=== PATIENT | male | born 1965 ===

== ENCOUNTER 2022-04-09 17:43 | Inpatient (IN) | payer MEDICARE, MEDICAID ==
[2022-04-09] MEDS ORDERED: MAGNESIUM HYDROXIDE 2,400 MG/10 ML CUP PO PRN (18:16)
[2022-04-09] MEDS ORDERED: MAG HYDROX/AL HYDROX/SIMETH 30 ML CUP PO PRN (18:16)
[2022-04-09] MEDS ORDERED: ACETAMINOPHEN TAB 325 MG TAB PO PRN (18:16)
[2022-04-09] MEDS ORDERED: LORazepam 1 MG TAB PO PRN (18:16)
[2022-04-09] MEDS ORDERED: HALOPERIDOL LACTATE 5 MG/ML 1 ML VIAL IM PRN (18:16)
[2022-04-09] MEDS ORDERED: haloperidoL 5 MG TAB PO PRN (18:18)
[2022-04-09] MEDS ORDERED: LORazepam 2 MG/ML INJ IM PRN (18:18)
--- NOTE | 2022-04-10 05:01 | P.PN ---
Progress Note - Text Progress Note Date: 04/10/22 patient sleeping could not be seen at this time
--- NOTE | 2022-04-10 13:18 | P.HP ---
Psychiatric H&P - . H&P Date: 04/10/22 History & Physical: Allergies Allergy/AdvReac Type Severity Reaction Status Date / Time No Known Allergies Allergy Verified 04/09/22 18:16 Vital Signs Temp 97.4 F L 04/09/22 18:05 Pulse 65 04/09/22 18:05 Resp 20 04/09/22 18:05 BP 117/88 04/09/22 18:05 Pulse Ox FiO2 Intake & Output 04/09/22 04/10/22 04/10/22 18:59 06:59 18:59 Weight 60.7 kg 62 kg 04/10/22 13:06 IDENTIFYING DATA: Patient is a 57-year-old male who is currently homeless has no kids. HPI: Patient presented to the hospital from [place]. She apparent he apparently was admitted for 70 days there for failure to thrive. Patient was apparently endorsing auditory hallucinations and not caring for self not eating and poor hygiene and grooming. Patient did was transferred to the hospital yesterday and admitted involuntarily. Patient was seen lying in his bed today and appeared to be disheveled in appearance, poverty of content, spoke in a soft tone of voice and was concrete. He states that he is "not feeling well". He is fairly vague about what he meant by this. He knew that he was in the hospital for the past 2 months however did not know why. He replied to most questions with either "not much" or "nothing". He claims that he has been depressed for the past several years and mainly isolating. He has not been showering or eating fairly. He claims that he sleeps fairly at nighttime. Patient denies any suicidal or homicidal ideations intent or plan. At this time patient denies any auditory or visual hallucinations. Patient denies any flight of ideas racing thoughts and increased in goal directed behavior. Patient admits to using no recreational drugs or cigarettes PAST PSYCHIATRIC HISTORY: Patient states that he has no significant mental health history. Patient denies being on any psychiatric medications. Patient denies any previous psychiatric hospitalizations. Patient denies any psychiatric outpatient follow-up over did state that he is to follow-up with a psychiatrist however cannot remember who. Patient denies any history of suicide attempts in the past. PMH: As per medicine H&P ALLERGIES: as per EMR CHEMICAL DEPENDENCY HISTORY: as per HPI FAMILY PSYCHIATRIC/SUBSTANCE USE HISTORY: denies SOCIAL HISTORY: Patient was born and raised in [place]. He states that he completed high school. He denies any legal history. He does not have any kids. He is currently homeless. MENTAL STATUS EXAM: General Appearance: Patient appears to be tall, thin, disheveled appearance, stated age is alert, difficult to direct her in conversation. Patient appears to have poor hygiene and grooming. Behavior: Patient is seated without any agitated behavior. Not cooperative. Vague. Speech: Patient's speech is fluent and nonpressured. Soft. Monotone. Mood/Affect: Patient reports their mood is depressed, affect is congruent and flat Suicidality/Homicidality: Patient denies having any homicidal ideation intent or plan. Denies any suicidal ideations intent or plan Perceptions: Patient denies any visual hallucinations and denies any auditory hallucinations Though content/process: Endorsing any delusions. Disorganized thoughts. Memory and concentration: AOX3, grossly intact for the purposes of this session. Cannot spell "WORLD" backwards Judgment and insight: poor STRENGTHS/WEAKNESSES: strength is that patient is resilient. Weakness is that patient has poor judgment and poor insight INTELLECT: average IMPRESSIONS: Schizoaffective disorder, depressive type PLAN: -Patient is admitted under involuntary status to MHU for stabilization of psychiatric symptoms and safety. Patient has not signed adult voluntary form and medication consent and is placed in patient's chart. A second certification was completed and along with petition will be filed for court. -Medications : Will start patient on Prozac 20 mg daily for mood/anxiety, Abilify 5 mg daily for psychosis/mood. Melatonin 5 mg daily at bedtime for sleep. -Ativan and Haldol PRN for agitation/aggression -Patient was informed of the risks, benefits and side effects of the medication and patient verbally consented to taking the medications. Patient signed med consent form and was placed in chart. -Internal Medicine consult to perform medical evaluation and physical. -NRT - not need this patient does not smoke -SW on board for discharge planning. Encourage patient to participate in groups to work on coping skills. Will await deferral and court date.
[2022-04-10] MEDS: FLUoxetine HCL 20 MG CAP PO SCH (13:45)
[2022-04-10] MEDS: ARIPiprazole 5 MG TAB PO SCH (13:45)
[2022-04-10] MEDS ORDERED: LORazepam 1 MG/0.5 ML VIAL IM PRN (16:26)
[2022-04-11] MEDS: FLUoxetine HCL 20 MG CAP PO SCH ×3 (10:03→14:08)
[2022-04-11] MEDS: ARIPiprazole 5 MG TAB PO SCH ×3 (10:03→14:07)
--- NOTE | 2022-04-11 10:50 | P.PN ---
Subjective Progress Note Date: 04/11/22 Principal diagnosis: IMPRESSIONS: Schizoaffective disorder, depressive type Subjective/subjective data: The patient was seen chart was reviewed and case discussed with the nursing staff The patient was laying in bed with sheets pulled all the way up to his face Patient did not answer to any questions asked but mostly made some grunting noises He acknowledges that he just came yesterday He did not want to get involved in any discussion Following is an etc. from the assessment done from the previous day ''Patient presented to the hospital from [place]. he apparent he apparently was admitted for 70 days there for failure to thrive. Patient was apparently endorsing auditory hallucinations and not caring for self not eating and poor hygiene and grooming. Patient did was transferred to the hospital yesterday and admitted involuntarily. Patient was seen lying in his bed today and appeared to be disheveled in appearance, poverty of content, spoke in a soft tone of voice and was concrete. He states that he is "not feeling well". He is fairly vague about what he meant by this. He knew that he was in the hospital for the past 2 months however did not know why. He replied to most questions with either "not much" or "nothing". He claims that he has been depressed for the past several years and mainly isolating. He has not been showering or eating fairly. He claims that he sleeps fairly at nighttime. Patient denies any suicidal or homicidal ideations intent or plan. At this time patient denies any auditory or visual hallucinations. Patient denies any flight of ideas racing thoughts and increased in goal directed behavior. Patient admits to using no recreational drugs or cigarettes'' MENTAL STATUS EXAM: General Appearance: Patient appears to be tall, thin, disheveled appearance, stated age is alert, laying comfortably in bed Patient appears to have poor hygiene and grooming. Behavior: Patient is laying down in bed without any agitated behavior. Not cooperative. Vague. Speech: Patient's speech is fluent and nonpressured. Soft. Monotone. Mood/Affect: Patient did not give feedback on his mood, affect is congruent and flat Suicidality/Homicidality: Unable to assess at this time Perceptions: Did not respond to any questions asked Though content/process: Unable to assess Memory and concentration: Unable to assess Judgment and insight: poor IMPRESSIONS: Schizoaffective disorder, depressive type PLAN: -Patient is admitted under involuntary status to MHU for stabilization of psychiatric symptoms and safety. Patient has not signed adult voluntary form and medication consent and is placed in patient's chart. A second certification was completed and along with petition will be filed for court. -Medications : patient on Prozac 20 mg daily for mood/anxiety, Abilify 5 mg daily for psychosis/mood. Melatonin 5 mg daily at bedtime for sleep. -Ativan and Haldol PRN for agitation/aggression From previous assessment: ' -Patient was informed of the risks, benefits and side effects of the medication and patient verbally consented to taking the medications. Patient signed med consent form and was placed in chart. -Internal Medicine consult to perform medical evaluation and physical. -NRT - not need this patient does not smoke -SW on board for discharge planning. Encourage patient to participate in groups to work on coping skills. Will await deferral and court date. ' Objective - Vital Signs Vital signs: Vital Signs Temp 97.4 F L 04/09/22 18:05 Pulse 65 04/09/22 18:05 Resp 20 04/09/22 18:05 BP 117/88 04/09/22 18:05 Pulse Ox FiO2
--- NOTE | 2022-04-12 01:45 | P.PN ---
Progress Note - Text Progress Note Date: 04/11/22 attempted to see the patient in the mental health unit at 2100 on 04/11. The patient refused to be seen or be evaluated
[2022-04-12] MEDS: ARIPiprazole 5 MG TAB PO SCH (09:17)
[2022-04-12] MEDS: FLUoxetine HCL 20 MG CAP PO SCH (09:17)
--- NOTE | 2022-04-12 10:33 | P.PN ---
Subjective Progress Note Date: 04/12/22 Principal diagnosis: IMPRESSIONS: Schizoaffective disorder, depressive type The interaction remains similar to the previous day where patient again refused to wake up in spite of several attempts to have him involved in any conversation Patient remains a motivated at this time to be involved in any interviewing and remains uncooperative Subjective/subjective data: The patient was seen chart was reviewed and case discussed with the nursing staff The patient was laying in bed with sheets pulled all the way up to his face Patient did not answer to any questions asked but mostly made some grunting noises He acknowledges that he just came yesterday He did not want to get involved in any discussion Following is an etc. from the assessment done from the previous day ''Patient presented to the hospital from [place]. he apparent he apparently was admitted for 70 days there for failure to thrive. Patient was apparently endorsing auditory hallucinations and not caring for self not eating and poor hygiene and grooming. Patient did was transferred to the hospital yesterday and admitted involuntarily. Patient was seen lying in his bed today and appeared to be disheveled in appearance, poverty of content, spoke in a soft tone of voice and was concrete. He states that he is "not feeling well". He is fairly vague about what he meant by this. He knew that he was in the hospital for the past 2 months however did not know why. He replied to most questions with either "not much" or "nothing". He claims that he has been depressed for the past several years and mainly isolating. He has not been showering or eating fairly. He claims that he sleeps fairly at nighttime. Patient denies any suicidal or homicidal ideations intent or plan. At this time patient denies any auditory or visual hallucinations. Patient denies any flight of ideas racing thoughts and increased in goal directed behavior. Patient admits to using no recreational drugs or cigarettes'' MENTAL STATUS EXAM: General Appearance: Patient appears to be tall, thin, disheveled appearance, stated age is alert, laying comfortably in bed Patient appears to have poor hygiene and grooming. Behavior: Patient is laying down in bed without any agitated behavior. Not cooperative. Vague. Speech: Patient's speech is fluent and nonpressured. Soft. Monotone. Mood/Affect: Patient did not give feedback on his mood, affect is congruent and flat Suicidality/Homicidality: Unable to assess at this time Perceptions: Did not respond to any questions asked Though content/process: Unable to assess Memory and concentration: Unable to assess Judgment and insight: poor IMPRESSIONS: Schizoaffective disorder, depressive type PLAN: -Patient is admitted under involuntary status to MHU for stabilization of psychiatric symptoms and safety. Patient has not signed adult voluntary form and medication consent and is placed in patient's chart. A second certification was completed and along with petition will be filed for court. -Medications : patient on Prozac 20 mg daily for mood/anxiety, Abilify 5 mg daily for psychosis/mood. Melatonin 5 mg daily at bedtime for sleep. -Ativan and Haldol PRN for agitation/aggression From previous assessment: ' -Patient was informed of the risks, benefits and side effects of the medication and patient verbally consented to taking the medications. Patient signed med consent form and was placed in chart. -Internal Medicine consult to perform medical evaluation and physical. -NRT - not need this patient does not smoke -SW on board for discharge planning. Encourage patient to participate in groups to work on coping skills. Will await deferral and court date. ' Objective - Vital Signs Vital signs: Vital Signs Temp 97.4 F L 04/12/22 09:30 Pulse 48 L 04/12/22 09:30 Resp 16 04/12/22 09:30 BP 96/58 04/12/22 09:30 Pulse Ox FiO2
[2022-04-13] MEDS: ARIPiprazole 5 MG TAB PO SCH ×2 (09:45→09:48)
[2022-04-13] MEDS: FLUoxetine HCL 20 MG CAP PO SCH ×2 (09:46→09:48)
[2022-04-13] MEDS: ARIPiprazole 10 MG TAB PO SCH (19:05)
[2022-04-14 06:42] LABS: Glucose,Whole Blood 83 mg/dL (70-110)
[2022-04-14] MEDS: ARIPiprazole 10 MG TAB PO SCH (09:33)
[2022-04-14] MEDS: FLUoxetine HCL 20 MG CAP PO SCH (09:33)
--- NOTE | 2022-04-14 11:54 | P.PN ---
Progress Note - Text Progress Note Date: 04/14/22 Interval History: Patient was seen today for psychiatric follow-up. Patient was seen laying in his bed with his face in the pillow. He appeared to have poor hygiene and grooming. Compressed [employer] Equipment Mechanic attempted to wake patient up several times and call out his name however patient did not respond. Patient eventually turned his head and face the other side away from sports writer and continue to not answer any questions. She has been refusing medications and blood work and treatment. Mental Status Exam: General Appearance: Patient appears to be tall, thin, disheveled appearance, somnolent. Patient appears to have poor hygiene and grooming. Behavior: Patient is not cooperative. Speech: Unable to assess Mood/Affect: Unable to assess Suicidality/Homicidality: Unable to assess Perceptions: Unable to assess Though content/process: Unable to assess Memory and concentration: Unable to assess Judgment and insight: poor IMPRESSIONS: Schizoaffective disorder, depressive type Plan: -Patient continues to meet criteria for inpatient psychiatric admission for symptom stabilization and safety. Patient has not signed adult voluntary form and medication consent and was placed in patient's chart. -Medications: Prozac 20 mg daily for mood/anxiety, Abilify 5 mg daily for psychosis/mood. Melatonin 5 mg daily at bedtime for sleep. Patient is not taking medications -When necessary Ativan and Haldol for agitation/aggression. -NRT - not needed as patient does not smoke -SW on board for discharge planning. Encouraged the patient to participate in milieu. Full court hearing set for April 21.
--- NOTE | 2022-04-14 21:45 | PN ---
DATE OF SERVICE: 04/17/2022 PROGRESS NOTE CHIEF COMPLAINT: The patient was admitted for failure to thrive and auditory hallucinations. INTERVAL HISTORY: The patient appears to continue at his baseline. He had a quiet day yesterday. It was noted by Dr. Machuca that he chose not to engage much in any kind of interaction. Dr. Machuca described him as "remains uncooperative." He did not attend groups yesterday. He was noted to sleep through the night. Today, he has been up. I have seen him at different times wandering at the unit. He walks in a very slow manner. He does not respond in any direct way to questions or to raise any concerns. He seems to have a bewildered look on his face. When I tried to review information relating to his medications or other aspects of treatment, he did not give any response at all. There is no indication that he is having difficulty tolerating his psychotropic medications. MENTAL STATUS EXAM: The patient would only very vaguely respond to questions. He gave no eye contact when he would be on the unit and walking in one direction. If I tried to talk to him, he barely would turn his head. He moves very slowly. His affect was flat, mood depressed. He appeared significantly distressed. He appears to show significant issues of thought disorder. It is difficult to assess for thoughts to harm. Orientation to his current situation remains uncertain. ASSESSMENT: I will continue with current diagnosis. I would be concerned that psychosis may be a primary issue for him. At this point, he is only on Abilify 5 mg a day. I will increase his Abilify to 10 mg and give him a 10 mg dose tonight. He will continue Prozac 20 mg a day. There is consideration for titrating up further on his antipsychotic medication. We will focus on stabilization and discharge planning. MMSHORTYL / CHRISN: [id number] / MTDJenae
[2022-04-15] MEDS: ARIPiprazole 10 MG TAB PO SCH (09:54)
[2022-04-15] MEDS: FLUoxetine HCL 20 MG CAP PO SCH (09:54)
--- NOTE | 2022-04-15 10:45 | P.PN ---
Progress Note - Text Progress Note Date: 04/15/22 Interval History: Patient was seen today for psychiatric follow-up. Patient was seen laying in his bed today and looked up at report writer with his eyes wide open. He continues to appear to be disheveled in appearance. He continues to reply "I don't know" to several questions. Continues to have a concrete answers and minimal interaction with report writer. He has very poor insight and judgment. He is not endorsing any auditory or visual hallucinations. Denying any suicidal or homicidal ideations intent or plan. He appeared to have poor hygiene and grooming. Patient just started taking medications today. Mental Status Exam: General Appearance: Patient appears to be tall, thin, disheveled appearance, more awake today. Patient appears to have poor hygiene and grooming. Behavior: Patient is not very cooperative. Laying in bed. Speech: [place], monotone. Mood/Affect: Patient claims that he is "fine", incongruent and constricted. Suicidality/Homicidality: Denies Perceptions: Denies any hallucinations Though content/process: [place], poverty of content. Memory and concentration: Unable to assess Judgment and insight: poor IMPRESSIONS: Schizoaffective disorder, depressive type Plan: -Patient continues to meet criteria for inpatient psychiatric admission for symptom stabilization and safety. Patient has not signed adult voluntary form and medication consent and was placed in patient's chart. -Medications: Prozac 20 mg daily for mood/anxiety, Abilify 5 mg daily for psychosis/mood. Melatonin 5 mg daily at bedtime for sleep -When necessary Ativan and Haldol for agitation/aggression. -NRT - not needed as patient does not smoke -SW on board for discharge planning. Encouraged the patient to participate in milieu. Full court hearing set for April 21.
[2022-04-16] MEDS: ARIPiprazole 10 MG TAB PO SCH (10:09)
[2022-04-16] MEDS: FLUoxetine HCL 20 MG CAP PO SCH (10:09)
--- NOTE | 2022-04-16 10:39 | P.PN ---
Progress Note - Text Progress Note Date: 04/16/22 Interval History: Patient was seen today for psychiatric follow-up. Patient was seen laying in his bed today and looked up at tech writer and immediately turned away when tech writer attempted to talk with him. He continues to have very poor hygiene and grooming. He was noted to be up and eating crackers and also his lunch yesterday and helped by nurse. Patient continues to respond with "I don't know" to most questions. He continues to demonstrate very poor insight and judgment. He refuses medications this morning. She is not following commands. Continues to have a concrete answers and minimal interaction with tech writer. He is not endorsing any auditory or visual hallucinations. Denying any suicidal or homicidal ideations intent or plan. Mental Status Exam: General Appearance: Patient appears to be tall, thin, disheveled appearance, more awake today, avoidant. Patient appears to have poor hygiene and grooming. Behavior: Patient is not very cooperative. Laying in bed. Avoidant. Speech: [place], monotone. Mood/Affect: Patient claims that he is "ok", incongruent and constricted. Suicidality/Homicidality: Denies Perceptions: Denies any hallucinations Though content/process: [place], poverty of content. Memory and concentration: Unable to assess Judgment and insight: poor IMPRESSIONS: Schizoaffective disorder, depressive type Plan: -Patient continues to meet criteria for inpatient psychiatric admission for symptom stabilization and safety. Patient has not signed adult voluntary form and medication consent and was placed in patient's chart. -Medications: Prozac 20 mg daily for mood/anxiety, Abilify 5 mg daily for psychosis/mood. Melatonin 5 mg daily at bedtime for sleep -When necessary Ativan and Haldol for agitation/aggression. -NRT - not needed as patient does not smoke -SW on board for discharge planning. Encouraged the patient to participate in milieu. Full court hearing set for April 21.
--- NOTE | 2022-04-17 10:06 | P.PN ---
Progress Note - Text Progress Note Date: 04/17/22 Interval History: Patient was seen today for psychiatric follow-up. Patient was coming out of the restroom. He stared radio news writer blankly and greeted him. He gradually walked towards radio news writer and stared at him. He continues to answer in very short phrases mainly claiming "I don't know". He states that he is feeling "okay" and denying any depression or anxiety. He continues to have very poor hygiene and grooming. Patient continues to respond with "I don't know" to most questions. He continues to demonstrate very poor insight and judgment. He refuses medications this morning. She appears to be more awake today. Continues to have a concrete answers and minimal interaction with radio news writer. He is not endorsing any auditory or visual hallucinations. Denying any suicidal or homicidal ideations intent or plan. Mental Status Exam: General Appearance: Patient appears to be tall, thin, disheveled appearance, more awake today, avoidant. Patient appears to have poor hygiene and grooming. Behavior: Patient is not very cooperative. Standing in his room. Avoidant. Speech: [place], monotone. Mood/Affect: Patient claims that he is "ok", incongruent and constricted. Suicidality/Homicidality: Denies Perceptions: Denies any hallucinations Though content/process: [place], poverty of content. Memory and concentration: Unable to assess Judgment and insight: poor IMPRESSIONS: Schizoaffective disorder, depressive type vs catatonia Plan: -Patient continues to meet criteria for inpatient psychiatric admission for symptom stabilization and safety. Patient has not signed adult voluntary form and medication consent and was placed in patient's chart. -Medications: Prozac 20 mg daily for mood/anxiety, Abilify 5 mg daily for psychosis/mood. Melatonin 5 mg daily at bedtime for sleep -When necessary Ativan and Haldol for agitation/aggression. -NRT - not needed as patient does not smoke -SW on board for discharge planning. Encouraged the patient to participate in milieu. Full court hearing set for April 21.
[2022-04-17] MEDS: FLUoxetine HCL 20 MG CAP PO SCH (10:07)
[2022-04-17] MEDS: ARIPiprazole 10 MG TAB PO SCH (10:07)
[2022-04-18] MEDS: FLUoxetine HCL 20 MG CAP PO SCH (08:58)
[2022-04-18] MEDS: ARIPiprazole 10 MG TAB PO SCH (08:58)
--- NOTE | 2022-04-18 12:18 | P.PN ---
Progress Note - Text Progress Note Date: 04/18/22 Interval history: Patient was seen bedside and was sedated and slow to respond. At this time kelsi forman denies any suicidal or homicidal ideations intent or plan. Patient has disorganized thought process and displays mutism. He denies having any concerns but has not been compliant with his medications. He continues to have poor hygiene and grooming. Mental status exam: General Appearance: Patient appears to be tall, thin, disheveled appearance, avoidant. Patient appears to have poor hygiene and grooming. Behavior: Patient is not very cooperative. Standing in his room. Avoidant. Speech: Whispered responses Mood/Affect: Patient claims that he is "ok", incongruent and constricted. Suicidality/Homicidality: Denies Perceptions: Denies any hallucinations Though content/process: [place], poverty of content. Memory and concentration: Unable to assess Judgment and insight: poor IMPRESSIONS: Schizoaffective disorder, depressive type vs catatonia Plan: -Patient continues to meet criteria for inpatient psychiatric admission for symptom stabilization and safety. Patient has not signed adult voluntary form and medication consent and was placed in patient's chart. -Medications: Prozac 20 mg daily for mood/anxiety, Abilify 5 mg daily for psychosis/mood. Melatonin 5 mg daily at bedtime for sleep -Will add Ativan 2 mg daily as an Ativan challenge for catatonic features -When necessary Ativan and Haldol for agitation/aggression. -NRT - not needed as patient does not smoke -SW on board for discharge planning. Encouraged the patient to participate in milieu. Full court hearing set for April 21.
[2022-04-18] MEDS: LORazepam 1 MG TAB PO SCH (14:00)
[2022-04-19] MEDS: ARIPiprazole 10 MG TAB PO SCH (09:12)
[2022-04-19] MEDS: FLUoxetine HCL 20 MG CAP PO SCH (09:12)
[2022-04-19] MEDS: LORazepam 1 MG TAB PO SCH (09:14)
--- NOTE | 2022-04-19 12:02 | P.PN ---
Progress Note - Text Progress Note Date: 04/19/22 Interval history: Patient was seen in the interview room. He continues to be slow to respond and initially endorsed that taking medication for this may be helpful. However, upon discussing it further, patient then restated that he would not like to be taking the medications. He states that he is doing "okay ". At this time patient denies any suicidal or homicidal ideations intent or plan. Patient has disorganized thought process and displays mutism. He denies having any concerns but has not been compliant with his medications. He continues to have poor hygiene and grooming. Mental status exam: General Appearance: Patient appears to be tall, thin, disheveled appearance, avoidant. Patient appears to have poor hygiene and grooming. Behavior: Patient is not very cooperative. Standing in his room. Avoidant. Speech: Whispered responses Mood/Affect: Patient claims that he is "ok", incongruent and constricted. Suicidality/Homicidality: Denies Perceptions: Denies any hallucinations Though content/process: [place], poverty of content. Memory and concentration: Unable to assess Judgment and insight: poor IMPRESSIONS: Schizoaffective disorder, depressive type vs catatonia Plan: -Patient continues to meet criteria for inpatient psychiatric admission for symptom stabilization and safety. Patient has not signed medication consent and was placed in patient's chart. -Medications: Prozac 20 mg daily for mood/anxiety, Abilify 5 mg daily for psychosis/mood. -Continue Ativan 2 mg daily as an Ativan challenge for catatonic features -When necessary Ativan and Haldol for agitation/aggression. -NRT - not needed as patient does not smoke -SW on board for discharge planning. Encouraged the patient to participate in milieu. Full court hearing set for April 21.
[2022-04-20] MEDS: LORazepam 1 MG TAB PO SCH (09:08)
[2022-04-20] MEDS: ARIPiprazole 10 MG TAB PO SCH (09:08)
[2022-04-20] MEDS: FLUoxetine HCL 20 MG CAP PO SCH (09:08)
--- NOTE | 2022-04-20 11:40 | P.PN ---
Progress Note - Text Progress Note Date: 04/20/22 Interval History: Patient was seen today for psychiatric follow-up. Patient was seen laying in the bed with his blankets covering him. Manager Of Corporate Communications attempted several times to awaken patient and patient did all wake briefly and did not answer any questions and turned over to the side to avoid comic book writer. She did not follow any commands and did not respond. Mental Status Exam: General Appearance: Patient appears to be tall, thin, disheveled appearance, lethargic, avoidant. Patient appears to have poor hygiene and grooming. Behavior: Patient is not very cooperative. Avoidant. Speech: Unable to assess Mood/Affect: Unable to assess Suicidality/Homicidality: Unable to assess Perceptions: Unable to assess Though content/process: Unable to assess Memory and concentration: Unable to assess Judgment and insight: poor IMPRESSIONS: Schizoaffective disorder, depressive type vs catatonia Plan: -Patient continues to meet criteria for inpatient psychiatric admission for symptom stabilization and safety. Patient has not signed adult voluntary form and medication consent and was placed in patient's chart. -Medications: Prozac 20 mg daily for mood/anxiety, Abilify 10 mg daily for psychosis/mood. Melatonin 5 mg daily at bedtime for sleep. patient is not taking meds. -When necessary Ativan and Haldol for agitation/aggression. -NRT - not needed as patient does not smoke -SW on board for discharge planning. Encouraged the patient to participate in milieu. Full court hearing set for April 21.
[2022-04-21] MEDS: ARIPiprazole 10 MG TAB PO SCH (09:30)
[2022-04-21] MEDS: FLUoxetine HCL 20 MG CAP PO SCH (09:30)
[2022-04-21] MEDS: LORazepam 1 MG TAB PO SCH (09:34)
--- NOTE | 2022-04-21 10:43 | P.PN ---
Progress Note - Text Progress Note Date: 04/21/22 Interval History: Patient was seen today for psychiatric follow-up. Patient was laying in bed in agreeable to speak to junior copywriter. Patient appeared to be more verbal/talkative today. He was seen earlier walking around the unit after eating breakfast. He knows his current location and knows the approximate day however does not know why the hospital. He believes that he's been in the hospital for the past month. He is denying any depression or anxiety at this time. States she did not sleep well last night. Continues to isolate. He is denying any auditory or visual hallucinations. He is denying any suicidal or homicidal ideations intent or plan. He continues to refuse medications however does not give a clear reason as to why. Mental Status Exam: General Appearance: Patient appears to be tall, thin, disheveled appearance, alert, avoidant. Patient appears to have poor hygiene and grooming. Behavior: Patient is not very cooperative. Avoidant. Speech: Her talkative today, concrete. Mood/Affect: His mood is "fine" and affect is constricted. Suicidality/Homicidality: Denies Perceptions: Denies Though content/process: [place], poverty of content. Thought endorsing any delusions. Memory and concentration: Alert and oriented 2, but does not know today's date. Mildly improving concentration today. Judgment and insight: poor IMPRESSIONS: Schizoaffective disorder, depressive type vs catatonia Plan: -Patient continues to meet criteria for inpatient psychiatric admission for symptom stabilization and safety. Patient has not signed adult voluntary form and medication consent and was placed in patient's chart. -Medications: Prozac 20 mg daily for mood/anxiety, Abilify 10 mg daily for psychosis/mood. Melatonin 5 mg daily at bedtime for sleep. patient is not taking meds. -When necessary Ativan and Haldol for agitation/aggression. -NRT - not needed as patient does not smoke -SW on board for discharge planning. Encouraged the patient to participate in milieu. Full court hearing set today
[2022-04-21 12:26] VITALS: BMI 19.5
[2022-04-22] MEDS: ARIPiprazole 10 MG TAB PO SCH ×2 (08:20→08:52)
[2022-04-22] MEDS: LORazepam 1 MG TAB PO SCH ×2 (08:21→08:53)
[2022-04-22] MEDS: FLUoxetine HCL 20 MG CAP PO SCH ×2 (08:21→08:53)
--- NOTE | 2022-04-22 09:47 | P.PN ---
Progress Note - Text Progress Note Date: 04/22/22 Interval History: Patient was seen today for psychiatric follow-up. Patient was seen near the e ntrance of his room standing looking down the hallway. Patient continues to appear to have a disheveled appearance and a surprised look. He continues to be fairly concrete and minimally verbal. He answered only some questions and appeared to be somewhat distracted during the encounter. She is denying any voices at this time and denying any hallucinations. He is also denying any thoughts of wanting to harm himself. He took his medications this morning. Patient has now court ordered. Patient only follow minimal commands. Mental Status Exam: General Appearance: Patient appears to be tall, thin, disheveled appearance, alert, avoidant. Patient appears to have poor hygiene and grooming. Behavior: Patient is not very cooperative. Avoidant. Speech: Her talkative today, concrete. Mood/Affect: His mood is "ok" and affect is constricted. Suicidality/Homicidality: Denies Perceptions: Denies Though content/process: [place], poverty of content. not endorsing any delusions. Memory and concentration: Alert and oriented 2, but does not know today's date. Mildly improving concentration today. Judgment and insight: poor IMPRESSIONS: Schizoaffective disorder, depressive type vs catatonia Plan: -Patient continues to meet criteria for inpatient psychiatric admission for symptom stabilization and safety. Patient has not signed adult voluntary form and medication consent and was placed in patient's chart. -Medications: Prozac 20 mg daily for mood/anxiety, Abilify 10 mg daily for psychosis/mood. Prolixin IM as backup in case patient is refusing medications. Ativan scheduled 2 mg daily -When necessary Ativan and Haldol for agitation/aggression. -NRT - not needed as patient does not smoke -SW on board for discharge planning. Encouraged the patient to participate in milieu. Patient is court ordered.
--- NOTE | 2022-04-22 10:40 | P.HPMEDMHU ---
History of Present Illness H&P Date: 04/22/22 Chief Complaint: "I believe I have told cancer" Patient is a 57-year-old male with a past medical history tobacco abuse who was admitted to the psych dexter for schizoaffective disorder. Patient was seen in [facility]. Patient states that he believes he has throat cancer because he has a difficult time breathing. Patient states that he does smoke extensively. He denies taking any home medications. Review of Systems 10 ROS reviewed and are negative except as noted in HPI Past Medical History Past Medical History: Unable to Obtain Additional Past Medical History / Comment(s): fx to left ankle, he states he had kidney Cancer, he does have a mediport on the right side of his chest for chemo tx's. Pt is poor historian, unable to obtain accurate information. He had recent cellulitis to his legs where he was tx's with vancomycin at [facility]. History of Any Multi-Drug Resistant Organisms: None Reported Past Surgical History: Unable to Obtain Past Anesthesia/Blood Transfusion Reactions: No Reported Reaction Past Psychological History: No Psychological Hx Reported Smoking Status: Current every day smoker Additional Drug Use History / Comment(s): Pt states that he wants to quit smoking. Medications and Allergies Allergies Allergy/AdvReac Type Severity Reaction Status Date / Time No Known Allergies Allergy Verified 04/09/22 18:16 Physical Exam Osteopathic Statement: *. No significant issues noted on an osteopathic structural exam other than those noted in the History and Physical/Consult. General: [Alert and oriented, well nourished, no acute distress]. Eye: [PERRL, EOMI, normal conjunctiva]. HENT: [Normocephalic, clear tympanic membranes, normal hearing, moist oral mucosa, no scleral icterus, no sinus tenderness]. Neck: [Supple, non-tender, no carotid bruits, no JVD, no lymphadenopathy]. Lungs: [Clear to auscultation and percussion, non-labored respiration]. Heart: [Normal rate, regular rhythm, no murmur, gallop or edema]. Abdomen: [Soft, non-tender, non-distended, normal bowel sounds, no masses]. Musculoskeletal: [Normal range of motion and strength, no tenderness or swelling]. Skin: [Skin is warm, dry and pink, no rashes or lesions]. Neurologic: [Awake, alert, and oriented X3, CN II-XII intact]. Psychiatric: [Cooperative, appropriate mood and affect]. Cranial Nerve Examination - Cranial Nerves Cranial Nerve I- Olfactory: Intact Cranial Nerve II- Optic: Intact Cranial Nerve III- Oculomotor: Intact Cranial Nerve IV- Trochlear: Intact Cranial Nerve V- Trigeminal: Intact Cranial Nerve - Abducens: Intact Cranial Nerve VII- Facial: Intact Cranial Nerve VIII- Auditory: Intact Cranial Nerve IX- Glossopharyngeal: Intact Cranial Nerve X- Vagus: Intact Cranial Nerve XI- Accessory: Intact Cranial Nerve XII- Hypoglossal: Intact Assessment and Plan Assessment: Mild dyspnea likely due to underlying COPD Tobacco abuse Patient seen walking in the hallways comfortably without any oxygen No further workup needed Patient instructed to follow-up with his primary care physician Patient was counseled on smoking cessation Schizoaffective disorder Your psychiatry management Thank you for the consult. Please hesitate to call us with any questions.
[2022-04-23] MEDS: ARIPiprazole 10 MG TAB PO SCH (09:33)
[2022-04-23] MEDS: FLUoxetine HCL 20 MG CAP PO SCH (09:33)
[2022-04-23] MEDS: LORazepam 1 MG TAB PO SCH (09:34)
--- NOTE | 2022-04-23 10:42 | P.PN ---
Progress Note - Text Progress Note Date: 04/23/22 Interval History: Patient was seen today for psychiatric follow-up. Patient was laying in his bed with the sheets covering his face. He was sleeping and freelance copywriter attempted to wake him up. Patient briefly looked at freelance copywriter and then turned away. She did not follow any more commands and was nonverbal. Mental Status Exam: General Appearance: Patient appears to be tall, thin, disheveled appearance, lethargic, avoidant. Patient appears to have poor hygiene and grooming. Behavior: Patient is not very cooperative. Avoidant. Speech: Not communicating today Mood/Affect: Unable to assess Suicidality/Homicidality: Unable to assess Perceptions: Unable to assess Though content/process: Unable to assess Memory and concentration: Unable to assess Judgment and insight: poor IMPRESSIONS: Schizoaffective disorder, depressive type vs catatonia Plan: -Patient continues to meet criteria for inpatient psychiatric admission for symptom stabilization and safety. Patient has not signed adult voluntary form and medication consent and was placed in patient's chart. -Medications: increase Prozac 40 mg daily for mood/anxiety, increase Abilify 15 mg daily for psychosis/mood. Prolixin IM as backup in case patient is refusing medications. D/c Ativan for now. -When necessary Ativan and Haldol for agitation/aggression. -NRT - not needed as patient does not smoke -SW on board for discharge planning. Encouraged the patient to participate in milieu. Patient is court ordered.
[2022-04-24] MEDS ORDERED: FLUoxetine HCL 20 MG CAP PO SCH (09:00)
[2022-04-24] MEDS ORDERED: ARIPiprazole 15 MG TAB PO SCH (09:00)
--- NOTE | 2022-04-24 11:10 | P.PN ---
Progress Note - Text Progress Note Date: 04/24/22 Interval History: Patient was seen today for psychiatric follow-up. Patient was seen in close and appeared to have mild improvement in his hygiene and grooming. He was sitting by the activity room with food in front of him. He acknowledged physician underwriter briefly continues to have a soft tone of voice. He answered some questions that physician underwriter asked him today. He claims that he is feeling "not good" or an unclear if he is depressed or not. He is denying any anxiety. Denying any problems with sleep. Denying any auditory or visual hallucinations. Denying any suicidal or homicidal ideations intent or plan. Patient is taking his medications and he is court ordered. Mental Status Exam: General Appearance: Patient appears to be tall, thin, disheveled appearance, alert, avoidant. Patient appears to have mildly improving hygiene and grooming. Behavior: Patient is not very cooperative. Avoidant, improving mildly Speech: Soft tone of voice. Mood/Affect: Claims that his mood is "not good", affect is flat Suicidality/Homicidality: Denies Perceptions: Denies Though content/process: [place], positive content. Memory and concentration: Unable to assess Judgment and insight: poor IMPRESSIONS: Schizoaffective disorder, depressive type vs catatonia Plan: -Patient continues to meet criteria for inpatient psychiatric admission for symptom stabilization and safety. Patient has not signed adult voluntary form and medication consent and was placed in patient's chart. -Medications: increase Prozac to 60 mg daily for mood/anxiety starting wednesday, increase Abilify 20 mg daily for psychosis/mood starting wednesday. Prolixin IM as backup in case patient is refusing medications as patient is court ordered. -When necessary Ativan and Haldol for agitation/aggression. -NRT - not needed as patient does not smoke -SW on board for discharge planning. Encouraged the patient to participate in milieu. Patient is court ordered.
[2022-04-25] MEDS ORDERED: FLUoxetine HCL 20 MG CAP PO ONE (09:00)
[2022-04-25] MEDS ORDERED: ARIPiprazole 15 MG TAB PO ONE (09:00)
[2022-04-25] MEDS: flUPHENAZine 2.5 MG/ML (MDV) 10 ML VIAL IM PRN (09:48)
[2022-04-26] MEDS: FLUoxetine HCL 20 MG CAP PO SCH (10:01)
[2022-04-26] MEDS: flUPHENAZine 2.5 MG/ML (MDV) 10 ML VIAL IM PRN (10:07)
--- NOTE | 2022-04-26 13:38 | P.PN ---
Progress Note - Text Progress Note Date: 04/25/22 Interval history: Patient was seen standing in his room, withdrawn, does come out into the hallway on encouragement but does not engage in assessment. He is disheveled, malodorous. He is refusing his Prozac and Abilify, is receiving Prolixin IM back-up. He mumbles his mood is "ok", objectively appears depressed. He appears internally preoccupied. He does not respond when asked about SI/HI/AVH. He does not follow commands and returns to his room to his bed. Mental status exam: General Appearance: Patient appears to be stated age, disheveled, malodorous. Behavior: No agitated behavior. Mutism, withdrawn, does not follow commands. Speech: Patient's speech is minimal, mumbled "Ok" and mostly mute. Mood/Affect: Mood is "Ok", affect is depressed and blunted. Suicidality/Homicidality: Not able to fully assess due to no reponse Perceptions: Appears to be attending to internal stimuli. Though content/process: Not able to fully assess due to no reponse Memory and concentration: Not able to fully assess due to no reponse Judgment and insight: Poor Assessment/Plan: Continue with current diagnosis. Concern for catatonia. If he continues to appear withdrawn will consider Ativan challenge or adding Ambien at bedtime. Patient continues to meet criteria for inpatient psychiatric admission for symptom stabilization and safety. Patient will be maintained on current psychotropic medication regimen. Monitor for medication compliance and for any psychotropic medication side effects. Will continue to monitor ongoing response to treatment. Encouraged participation in milieu.
[2022-04-26] MEDS: LORazepam 1 MG TAB PO STA ×2 (13:43→13:51)
[2022-04-26] MEDS ORDERED: LORazepam 1 MG/0.5 ML VIAL IM ONE (13:51)
--- NOTE | 2022-04-26 17:38 | P.PN ---
Progress Note - Text Progress Note Date: 04/26/22 Interval history: Patient was seen laying in his bed this morning after receiving the Prolixin 3 mg IM for refusal of his oral medications. He is withdrawn and catatonic with minimal verbal output, no responses to most questions, staring and resistance to being moved. He was given Ativan 1 mg po IM x 1 (he refused po Ativan when offered) as an Ativan challenge for catatonia, and on reevaluation at about 1.5 hours later he was more verbal, reports he is "ok, tired", reports he ate breakfast but did not eat lunch and states he has been "sleeping so much". He is drowsy from the Prolixin IM and Ativan IM and returns to sleep. He continues to be disheveled and malodorous. He denies SI/HI or AVH. Mental status exam: General Appearance: Patient appears to be stated age, disheveled, malodorous. Behavior: No agitated behavior. Mutism, withdrawn, does not follow commands, resistance to being moved. After his Ativan challenge he is more verbal but sleepy. Speech: Patient's speech is minimal, mumbled "Ok" and mostly mute. After his Ativan challenge he is more verbal but sleepy. Mood/Affect: Mood is "Ok", affect is depressed and blunted. Suicidality/Homicidality: He denies suicidal or homicidal ideation. Perceptions: Appears to be attending to internal stimuli. Though content/process: Minimal, mutism. After his Ativan challenge he is more verbal but responses are still brief. Memory and concentration: Not able to fully assess due to no reponse Judgment and insight: Poor Assessment/Plan: Continue with current diagnosis. Concern for catatonia: Start Ativan 0.5 mg po/IM TID for catatonia. Monitor vital signs and hold for vital sign parameters (see order). Patient continues to meet criteria for inpatient psychiatric admission for symptom stabilization and safety. Patient will be maintained on current psychotropic medication regimen. Monitor for medication compliance and for any psychotropic medication side effects. Will continue to monitor ongoing response to treatment. Encouraged participation in milieu.
[2022-04-26] MEDS: LORazepam 0.5 MG TAB PO SCH (21:28)
[2022-04-26] MEDS: LORazepam 1 MG/0.5 ML VIAL IM PRN (21:28)
[2022-04-27] MEDS: FLUoxetine HCL 20 MG CAP PO SCH (09:41)
[2022-04-27] MEDS: LORazepam 0.5 MG TAB PO SCH ×3 (09:42→21:33)
--- NOTE | 2022-04-27 14:25 | P.PN ---
Progress Note - Text Progress Note Date: 04/27/22 Interval history: Patient was seen laying in his bed this morning. He is more verbal today, reports he is "good", mood is "ok", states he ate breakfast, reports good sleep and appetite. His catatonic symptoms are remitting since starting the Ativan 0.5 mg TID. He was compliant with his oral Abilify, Prozac and Ativan this morning for the first time in days, and has not required IM back-up so far today. He continues to appears depressed, withdrawn, disheveled, and isolates to his room. He denies SI/HI or AVH, however he is a poor historian. Mental status exam: General Appearance: Patient appears to be stated age, disheveled, malodorous. Behavior: No agitated behavior. He more verbal and alert today after starting Ativan for catatonia yesterday, however he continues to be withdrawn. Speech: Patient's speech is soft and mumbled. Mood/Affect: Mood is "Ok", affect is depressed and blunted. Suicidality/Homicidality: He denies suicidal or homicidal ideation. Perceptions: He denies auditory or visual hallucinations, but there is concern for internal stimuli. Though content/process: Brief responses, poor effort in engaging in assessment. Memory and concentration: Not able to fully assess due to poor effort Judgment and insight: Poor Assessment: Schizoaffective disorder, depressive type, vs Bipolar disorder, depressed, severe with psychotic features Catatonia - responding to Ativan Plan: Continue Ativan 0.5 mg po/IM TID for catatonia. Monitor vital signs and hold for vital sign parameters (see order). Patient continues to meet criteria for inpatient psychiatric admission for symptom stabilization and safety. Patient will be maintained on current psychotropic medication regimen. Monitor for medication compliance and for any psychotropic medication side effects. Will continue to monitor ongoing response to treatment. Encouraged participation in milieu. Encourage fluids.
[2022-04-28] MEDS: FLUoxetine HCL 20 MG CAP PO SCH (09:57)
[2022-04-28] MEDS: LORazepam 0.5 MG TAB PO SCH ×3 (09:57→21:45)
--- NOTE | 2022-04-28 11:45 | P.PN ---
Progress Note - Text Progress Note Date: 04/28/22 Interval history: Patient was seen laying in his bed this morning and turned to face jingle writer. Brooks forman was awake and greeted jingle writer. Patient reported that his mood is "good" and denied any overnight complaints. He claims that he is still not sleeping well. He appears to be more engaged with jingle writer during conversation. He states that he does not know who jingle writer is. He does note that he is in "[place]" in the hospital however continues to not know why. He is not reporting any anxiety or depression today. Patient apparently asked for breakfast this morning on his own and has been taking his medications. He continues to be withdrawn, disheveled, and isolates to his room. He denies SI/HI or AVH, however he is a poor historian. continues to demonstrate poor insight/judgment. Mental status exam: General Appearance: Patient appears to be stated age, disheveled, mildly improving. Behavior: No agitated behavior. He more verbal and alert today. Continues to be withdrawn. Speech: Patient's speech is soft and more fluent. Mood/Affect: Mood is "Ok", affect is blunted. Suicidality/Homicidality: He denies suicidal or homicidal ideation. Perceptions: He denies auditory or visual hallucinations Though content/process: Brief responses, poor hisotrian. withdrawn. poverty of content. Memory and concentration: Not able to fully assess due to poor effort Judgment and insight: Poor Assessment: Schizoaffective disorder, depressive type, vs Bipolar disorder, depressed, severe with psychotic features Catatonia - responding to Ativan Plan: Patient continues to meet criteria for inpatient psychiatric admission for symptom stabilization and safety. At this time will increase Abilify by mouth to 25 mg daily for psychosis. Continue with Prozac 60 mg daily for mood/anxiety. Continue Ativan 0.5 mg po/IM TID for catatonia. Monitor vital signs and hold for vital sign parameters. Monitor for medication compliance and for any psychotropic medication side effects. Will continue to monitor ongoing response to treatment. Encouraged participation in milieu. Encourage fluids. SW and team looking into placement options. Patient is his own gaurdian. likely cannot care for himself.
--- NOTE | 2022-04-29 10:27 | P.PN ---
Progress Note - Text Progress Note Date: 04/29/22 Interval history: Patient was seen laying in his bed this morning and turned to face scenario writer. P jacky appears to be more awake today and more directable today when speaking with scenario writer. He is more talkative and answers or questions. He states that he is doing "okay". He claims that he was feeling tired this morning however able to sleep a bit better last night. He states that he would like to be discharged to his brother's house. He continues to be somewhat isolative. He denies any overnight complaints. Denying any depression or anxiety at this time. He continues to not recognize scenario writer however is alert and oriented 3. he claims that he was up for breakfast this morning. He continues to be withdrawn. He denies SI/HI or AVH. he denies any side effects to the medications. Mental status exam: General Appearance: Patient appears to be stated age, disheveled, mildly improving. Behavior: No agitated behavior. He more verbal and alert today, more directable today Speech: Patient's speech is soft and more fluent. Mood/Affect: Mood is "Ok", affect is constricted. Suicidality/Homicidality: He denies suicidal or homicidal ideation. Perceptions: He denies auditory or visual hallucinations Though content/process: Brief responses, poverty of content. concrete. Memory and concentration: Not able to fully assess due to poor effort Judgment and insight: Poor, improving mildly Assessment: Schizoaffective disorder, depressive type, vs Bipolar disorder, depressed, severe with psychotic features Catatonia - responding to Ativan Plan: Patient continues to meet criteria for inpatient psychiatric admission for symptom stabilization and safety. At this time will increase Abilify by mouth to 30 mg daily for psychosis. will give Abilify MAintenna 400 mg IM today. Continue with Prozac 60 mg daily for mood/anxiety. Continue Ativan 0.5 mg po/IM TID for catatonia. Monitor vital signs and hold for vital sign parameters. Monitor for medication compliance and for any psychotropic medication side effects. Will continue to monitor ongoing response to treatment. Encouraged participation in milieu. Encourage fluids. SW and team looking into placement options. Patient is his own gaurdian. Patient states that he is willing to go to his brothers house in [place], [place]. likely d ischarge in 1-2 days.
[2022-04-29] MEDS: FLUoxetine HCL 20 MG CAP PO SCH (10:47)
[2022-04-29] MEDS: LORazepam 0.5 MG TAB PO SCH ×3 (10:47→20:31)
[2022-04-29] MEDS: ARIPiprazole 5 MG TAB PO SCH (10:47)
[2022-04-29] MEDS ORDERED: ARIPiprazole IM SYRINGE 400 MG (NO CHARGE) PHARMACY STOCK IM ONE (11:00)
[2022-04-30] MEDS: LORazepam 0.5 MG TAB PO SCH ×3 (09:17→21:26)
[2022-04-30] MEDS: ARIPiprazole 5 MG TAB PO SCH (09:17)
[2022-04-30] MEDS: FLUoxetine HCL 20 MG CAP PO SCH (09:17)
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
[2022-05-01] MEDS: LORazepam 0.5 MG TAB PO SCH ×3 (10:38→21:08)
[2022-05-01] MEDS: FLUoxetine HCL 20 MG CAP PO SCH (10:39)
[2022-05-01] MEDS: ARIPiprazole 5 MG TAB PO SCH (10:40)
--- NOTE | 2022-05-01 11:17 | P.PN ---
Progress Note - Text Progress Note Date: 05/01/22 Interval history: Patient was seen laying in his bed this morning and turned to face production underwriter. He continues to be directable during conversation and answer questions appropriately. He states that he is "fine" and is denying any depression today. He claims that he was up earlier for breakfast. He did not offer any overnight complaints. Patient appears to be more awake today and more directable today when speaking with production underwriter. We spoke about discharge options briefly which patient seems indifferent about. He continues to be somewhat isolative in the mornings. He denies any overnight complaints. Denying any depression or anxiety at this time. He denies SI/HI or AVH. he denies any side effects to the medications. Mental status exam: General Appearance: Patient appears to be stated age, grooming mildly improving. Behavior: No agitated behavior. He more verbal and alert today, more directable today Speech: Patient's speech is soft and more fluent. Mood/Affect: Mood is "Ok", affect is constricted. Suicidality/Homicidality: He denies suicidal or homicidal ideation. Perceptions: He denies auditory or visual hallucinations Though content/process: Brief responses, poverty of content. concrete. Memory and concentration: Not able to fully assess due to poor effort Judgment and insight: Poor, improving mildly Assessment: Schizoaffective disorder, depressive type, vs Bipolar disorder, depressed, severe with psychotic features Catatonia - responding to Ativan Plan: Patient continues to meet criteria for inpatient psychiatric admission for symptom stabilization and safety. increase Abilify by mouth 30 mg daily for psychosis. given Abilify MAintenna 400 mg IM 04/29 and will be due for next dose on 05/27. increase Prozac 80 mg daily for mood/anxiety. Continue Ativan 0.5 mg po/IM TID for catatonia. Monitor vital signs and hold for vital sign parameters. Monitor for medication compliance and for any psychotropic medication side effects. Will continue to monitor ongoing response to treatment. Encouraged participation in milieu. Encourage fluids. SW and team looking into placement options. Patient is his own gaurdian. likely discharge early next week once [facility] has an available bed.
[2022-05-02] MEDS: FLUoxetine HCL 20 MG CAP PO SCH (09:03)
[2022-05-02] MEDS: LORazepam 0.5 MG TAB PO SCH ×3 (09:03→21:14)
[2022-05-02] MEDS: ARIPiprazole 15 MG TAB PO SCH (09:03)
[2022-05-02] MEDS: LORazepam 1 MG/0.5 ML VIAL IM PRN (09:06)
--- NOTE | 2022-05-02 13:20 | P.PN ---
Subjective Progress Note Date: 05/02/22 Principal diagnosis: Schizoaffective disorder, depressive type, vs Bipolar disorder, depressed, severe with psychotic features Catatonia - responding to Ativan Patient was seen laying in his bed this morning and turned away from me and covered his head with his blanket. He did not want to answer questions, but when asked him if he knew where was he said one word [place]. Then did not want to talk. When never met before said he was not reacting me personally although he may have been reacting to my being somewhat different. He states that he is "fine" and is denying any depression today. He claims that he was up earlier for breakfast. He did not offer any overnight complaints. Patient appears to be more awake today and more directable today when speaking with caption writer. We spoke about discharge options briefly which patient seems indifferent about. He continues to be somewhat isolative in the mornings. He denies any overnight complaints. Denying any depression or anxiety at this time. He denies SI/HI or AVH. he denies any side effects to the medications. Mental status exam: General Appearance: Patient appears to be stated age, grooming mildly improving. Behavior: No agitated behavior. He is apparently less verbal today than he was yesterday Speech: Patient's speech is soft and nonproductive one-word answers. Mood/Affect: He said he was fine. He seemed to mean leave me alone Suicidality/Homicidality: He denies suicidal or homicidal ideation. Perceptions: He denies auditory or visual hallucinations Though content/process: Brief responses, poverty of content. concrete. Memory and concentration: Not able to fully assess due to poor effort Judgment and insight: Poor, seems to have taken a step backward from the note yesterday Assessment: Schizoaffective disorder, depressive type, vs Bipolar disorder, depressed, severe with psychotic features Catatonia - responding to Ativan Plan: Patient continues to meet criteria for inpatient psychiatric admission for symptom stabilization and safety. increase Abilify by mouth 30 mg daily for psychosis. given Abilify MAintenna 400 mg IM 04/29 and will be due for next dose on 05/27. increase Prozac 80 mg daily for mood/anxiety. Continue Ativan 0.5 mg po/IM TID for catatonia. Monitor vital signs and hold for vital sign parameters. Monitor for medication compliance and for any psychotropic medication side effects. Will continue to monitor ongoing response to treatment. Encouraged participation in milieu. Encourage fluids. SW and team looking into placement options. Patient is his own gaurdian. likely discharge early next week once [facility] has an available bed. Objective - Vital Signs Vital signs: Vital Signs Temp 98.1 F 05/02/22 06:19 Pulse 56 L 05/02/22 06:19 Resp 14 05/02/22 06:19 BP 87/60 05/02/22 06:19 Pulse Ox 96 05/02/22 06:19 FiO2
[2022-05-03 07:05] VITALS: RESP 16
[2022-05-03] MEDS: FLUoxetine HCL 20 MG CAP PO SCH (09:58)
[2022-05-03] MEDS: ARIPiprazole 15 MG TAB PO SCH (09:59)
[2022-05-03] MEDS: LORazepam 0.5 MG TAB PO SCH ×3 (09:59→21:15)
--- NOTE | 2022-05-03 13:20 | P.PN ---
Subjective Progress Note Date: 05/03/22 Principal diagnosis: Schizoaffective disorder, depressive type, vs Bipolar disorder, depressed, severe with psychotic features Catatonia - responding to Ativan I tried to talk to the patient when he was walking back from breakfast, out in the [place]. He did not want to answer questions. He said he was fine. Then did not want to talk. He claims that he his appetite is fine. He did not offer any overnight complaints. Patient appears to be more awake today and more directa ble today but would not speak with securities underwriter he said he slept okay Denying any depression or anxiety at this time. He denies SI/HI or AVH. he denies any side effects to the medications. Mental status exam: Poor self-care General Appearance: Patient appears to be stated age, grooming mildly improving. Behavior: No agitated behavior. He remains unwilling to talk Speech: Patient's speech is soft and nonproductive one-word answers. Mood/Affect: He said he was fine. He seemed to mean "leave me alone" Suicidality/Homicidality: He denies suicidal or homicidal ideation. Perceptions: He denies auditory or visual hallucinations Though content/process: Brief responses, poverty of content. concrete. Memory and concentration: Not able to fully assess due to his poor participation Judgment and insight: Poor, Assessment: Schizoaffective disorder, depressive type, vs Bipolar disorder, depressed, severe with psychotic features Catatonia - responding to Ativan The Abilify maintain should be kicking in by now. However it may simply be calming him down and he has no life drive Benefit seems likely to be limited. Plan: Patient continues to meet criteria for inpatient psychiatric admission for symp aleshia stabilization and safety. increase Abilify by mouth 30 mg daily for psychosis. given Abilify MAintenna 400 mg IM 04/29 and will be due for next dose on 05/27. increase Prozac 80 mg daily for mood/anxiety. Continue Ativan 0.5 mg po/IM TID for catatonia. Monitor vital signs and hold for vital sign parameters. Monitor for medication compliance and for any psychotropic medication side effects. Will continue to monitor ongoing response to treatment. Encouraged participation in milieu. However this seems unlikely Encourage fluids. SW and team looking into placement options. Patient is his own gaurdian. likely discharge early next week once nursing home has an available bed. Objective - Vital Signs Vital signs: Vital Signs Temp 97.5 F L 05/03/22 07:04 Pulse 53 L 05/03/22 07:04 Resp 16 05/03/22 07:04 BP 98/54 05/03/22 07:04 Pulse Ox 96 05/02/22 06:19 FiO2
[2022-05-04 06:45] VITALS: PULSE 52
[2022-05-04] MEDS: ARIPiprazole 15 MG TAB PO SCH (10:13)
[2022-05-04] MEDS: FLUoxetine HCL 20 MG CAP PO SCH (10:13)
[2022-05-04] MEDS: LORazepam 0.5 MG TAB PO SCH ×3 (10:13→21:46)
--- NOTE | 2022-05-04 11:38 | P.PN ---
Progress Note - Text Progress Note Date: 05/04/22 Interval history: Patient was seen laying in his bed this morning and turned to face writer technical publications. He continues to be directable during conversation and answer questions appropriately and as best as he could. He continues to deny any problems at this time. He is denying any depression today. He did not offer any overnight complaints. Patient appears to be more awake today and more directable today when speaking with writer technical publications. We spoke about discharge options however patient continues to remain indifferent about. He denies any overnight complaints. Denying any depression or anxiety at this time. He denies SI/HI or AVH. he denies any side effects to the medications. Mental status exam: General Appearance: Patient appears to be stated age, grooming mildly improving. Behavior: No agitated behavior. He more verbal and alert today, more directable today Speech: Patient's speech is soft and more fluent. Mood/Affect: Mood is "fine", affect is constricted. Suicidality/Homicidality: He denies suicidal or homicidal ideation. Perceptions: He denies auditory or visual hallucinations Though content/process: Brief responses, poverty of content. concrete. Memory and concentration: Alert and oriented X 3, improved concentration. Judgment and insight:limited chornically, improving mildly Assessment: Schizoaffective disorder, depressive type, vs Bipolar disorder, depressed, severe with psychotic features Catatonia - responding to Ativan Plan: Patient continues to meet criteria for inpatient psychiatric admission for symptom stabilization and safety. Abilify by mouth 30 mg daily for psychosis. given Abilify MAintenna 400 mg IM 04/29 and will be due for next dose on 05/27. Prozac 80 mg daily for mood/anxiety. Continue Ativan 0.5 mg po/IM TID for catatonia. Monitor vital signs and hold for vital sign parameters. Monitor for medication compliance and for any psychotropic medication side effects. Will continue to monitor ongoing response to treatment. Encouraged participation in milieu. Encourage fluids. SW and team looking into placement options. Patient is his own gaurdian. likely discharge tomorrow to either [facility] vs the medical center.
[2022-05-05 05:56] VITALS: BP 108/60; TEMP 98
[2022-05-05] MEDS: LORazepam 0.5 MG TAB PO SCH ×3 (09:52→13:26)
[2022-05-05] MEDS: ARIPiprazole 15 MG TAB PO SCH ×3 (09:52→13:25)
[2022-05-05] MEDS: FLUoxetine HCL 20 MG CAP PO SCH ×3 (09:52→13:26)
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
== END 2022-05-05 14:07 | disposition home or self-care (01) | DRG 885 ==
LOC: 3MHU 17:43
PROVIDERS: ADMIT Psychiatry & Neurology Psychiatry; ATTEND Psychiatry & Neurology Psychiatry
DX: F25.1 Schizoaffective disorder, depressive type (principal); R47.01 Aphasia; F06.1 Catatonic disorder due to known physiological condition; F41.9 Anxiety disorder, unspecified; R62.7 Adult failure to thrive; Z59.00 Homelessness unspecified; Z79.899 Other long term (current) drug therapy; Z91.14 Patient's other noncompliance with medication regimen